=== PATIENT | female | born 1955 | race African-American/Black ===

== ENCOUNTER 2018-07-07 17:17 | Emergency (ER) | payer OTHER ==
[~2018-07-07] VITALS: Ht 175.3 cm; Wt 118.4 kg
[~2018-07-07 17:17] MED LIST: ACET1TAB42 PO; ACET1TAB52 PO; ACET500T71 PO; ASPI-650 PO; BETA1CAP2 PO; CALC625T23 PO; CHOL100012 PO; CYAN100072 PO; CYAN1TAB29 PO; DEXT1TAB7 PO; DIPH25CA61 PO; DOCU-180 PO; DULO60CA55 PO; IRON1TAB60 PO; LACT-23 PO; LISI40TA PO; MULT-658 PO; MULT1TAB60 PO; NAPR-685 PO; OMEG1CAP23 PO; OMEP20CA9 PO; OXYC-306 PO; OXYC500S PO; SERT100T5 PO; TRIA1CAP3 PO; TRIA1TAB3 PO
[2018-07-07 18:39] LABS: BASOPHILS # (AUTO) 0.07 x10^3/uL (0-0.1); BASOPHILS % (AUTO) 1 % (0-1); EOSINOPHILS # (AUTO) 0.23 x10^3/uL (0-0.4); EOSINOPHILS % (AUTO) 3 % (1-7); LYMPHOCYTES # (AUTO) 2.73 x10^3/uL (1-3.4); LYMPHOCYTES % (AUTO) 33 % (22-44); MD NO; MEAN CORPUSCULAR HEMOGLOBIN 30.8 pg (27.0-34.8); MEAN CORPUSCULAR HGB CONC 33.4 g/dL (32.4-35.8); MEAN CORPUSCULAR VOLUME 92.2 fL (80-100); MEAN PLATELET VOLUME 9.1 fL (7.4-10.4); MONOCYTES # (AUTO) 0.51 x10^3/uL (0.2-0.8); MONOCYTES % (AUTO) 6 % (2-9); NEUTROPHILS # (AUTO) 4.71 x10^3/uL (1.8-6.8); NEUTROPHILS % (AUTO) 57 % (42-75); PLATELET COUNT 367 x10^3/uL (130-400); RED BLOOD COUNT 3.94 x10^6/uL (3.82-5.3); RED CELL DISTRIBUTION WIDTH 15.3 % (9.6-15.2)
[2018-07-07 18:41] LABS: ALANINE AMINOTRANSFERASE 22 U/L (12-78); ALBUMIN 3.1 g/dL (3.4-5.0); ANION GAP 6 mmol/L (5-15); CALCIUM 8.8 mg/dL (8.5-10.1); CHLORIDE 108 mmol/L (98-107); CREATININE 1.73 mg/dL (0.55-1.02)
[2018-07-07 18:44] LABS: ALKALINE PHOSPHATASE 95 U/L (45-117); BILIRUBIN,TOTAL 0.2 mg/dL (0.2-1.0)
[2018-07-07 19:57] VITALS: BP 178/94
== END 2018-07-07 21:41 | disposition home or self-care (01) ==
LOC: ED 21:35
DX: M16.0 Bilateral primary osteoarthritis of hip (principal); M17.11 Unilateral primary osteoarthritis, right knee; R60.0 Localized edema; I10 Essential (primary) hypertension; F17.200 Nicotine dependence, unspecified, uncomplicated
CPT/HCPCS: 36415; 71045; 72110; 80053; 85025; 93005; 93970; 99285